=== PATIENT | female | born 1985 | race Caucasian/White ===

== ENCOUNTER 2017-02-04 09:55 | Emergency (ER) | payer BC ==
[~2017-02-04] VITALS: Ht 172.7 cm; Wt 74.9 kg
[~2017-02-04 09:55] MED LIST: AZIT250T PO; BENZ-13 PO; HYDR-2997 PO; IBP800T; LISD40CA3; NORG1TAB80; OXYC-272
--- OUTSIDE RECORDS SUMMARY | 2017-02-04 09:59 | XMS REPORT ---
Author Author BRIANNA HENDRICKS [facility] eClinicalWorks Address Unknown Phone Unavailable Care Team Providers Care Neurology Director Name Role Phone BRIANNA HENDRICKS CP Unavailable Allergies, Adverse Reactions, Alerts Substance Reaction Event Type N.K.D.A. Info Not Available Non Drug Allergy Problems Problem Type Condition ICD-9 Code Onset Dates Condition Status Problem Unspecified disorder of menstruation and other abnormal bleeding from female genital tract 626.9 Active Problem Papanicolaou smear of cervix with low grade squamous intraepithelial lesion (LGSIL) 795.03 Active Problem Generalized anxiety disorder 300.02 Active Problem Moderate dysplasia of cervix 622.12 Active Assessment Depression with anxiety 300.4 Active Medications Medication Code System Code Instructions Start Date End Date Status Dosage HydrOXYzine HCl [facility] [address]-61 50 MG Orally 2 times a day prn anxiety sleep Dec 08, 2014 1 tablet as needed Fluoxetine HCl [facility] [address]-12 20 MG Orally Once a day Dec 08, 2014 1 capsule in the morning Ortho Tri-Cyclen Lo [facility] [address]-62 0.18/0.215/0.25 MG-25 MCG Orally Once a day October 15, 2014 1 tablet Procedures Procedure Coding System Code Date Office Visit, Est Pt., Level 4 CPT-4 76787 Dec 08, 2014 Vital Signs Date/Time: Dec 08, 2014 Temperature 98.5 F Weight 172.5 lbs Height 69 in BMI 25.47 Index Blood Pressure Diastolic 70 mmHg Blood Pressure Systolic 118 mmHg Cardiac Monitoring Heart Rate 88 bpm Results No Known Results Summary Purpose eClinicalWorks Submission
--- OUTSIDE RECORDS SUMMARY | 2017-02-04 09:59 | XMS REPORT ---
Author Author BRIANNA HENDRICKS [facility] eClinicalWorks Address Unknown Phone Unavailable Care Team Providers Care Control Supervisor Name Role Phone BRIANNA HENDRICKS CP Unavailable Allergies, Adverse Reactions, Alerts Substance Reaction Event Type N.K.D.A. Info Not Available Non Drug Allergy Problems Problem Type Condition Code Onset Dates Condition Status Problem Unspecified disorder of menstruation and other abnormal bleeding from female genital tract 626.9 Active Problem Papanicolaou smear of cervix with low grade squamous intraepithelial lesion (LGSIL) 795.03 Active Problem Generalized anxiety disorder F41.1 Active Problem Moderate dysplasia of cervix 622.12 Active Assessment Depression with anxiety 300.4 Active Medications Medication Code System Code Instructions Start Date End Date Status Dosage HydrOXYzine HCl [facility] [address]-73 50 MG Orally Once a day at hs prn 1 tablet as needed Ortho Tri-Cyclen Lo [facility] [address]-73 0.18/0.215/0.25 MG-25 MCG Orally Once a day October 15, 2014 1 tablet Fluoxetine HCl [facility] [address]-49 20 MG Orally Once a day 1 capsule in the morning BusPIRone HCl [facility] [address]-80 7.5 MG Orally Once a day prn Dec 29, 2014 1 tablet Procedures Procedure Coding System Code Date Office Visit, Est Pt., Level 3 CPT-4 26413 Dec 29, 2014 Vital Signs Date/Time: Dec 29, 2014 Cardiac Monitoring Heart Rate 78 bpm Temperature 98.3 F Height 69 in Head Circumference 104/70 cm Results No Known Results Summary Purpose eClinicalWorks Submission
--- OUTSIDE RECORDS SUMMARY | 2017-02-04 09:59 | XMS REPORT ---
Author NIVIA Perry Organization eClinicalWorks Address Unknown Phone Unavailable Care Team Providers Care Client Service Professional Name Role Phone NIVIA BUENO CP Unavailable Allergies No Known Allergies Problems Problem Type Condition Code Onset Dates Condition Status Problem Unspecified disorder of menstruation and other abnormal bleeding from female genital tract 626.9 Active Problem Papanicolaou smear of cervix with low grade squamous intraepithelial lesion (LGSIL) 795.03 Active Problem Generalized anxiety disorder F41.1 Active Problem Moderate dysplasia of cervix 622.12 Active Assessment Generalized anxiety disorder F41.1 Active Medications No Known Medications Procedures Procedure Coding System Code Date Psychotherapy, patient &/family, 30 minutes, established patient CPT-4 13709 Dec 29, 2014 Results No Known Results Summary Purpose [employer] Submission
--- OUTSIDE RECORDS SUMMARY | 2017-02-04 09:59 | XMS REPORT ---
Author Author IRENE HDZ [facility] Address [address] [place] [address] Care Team Providers Care Inside Channel Account Manager Name Role Phone IRENE HDZ Unavailable PROBLEMS Type Condition ICD9-CM Code [id number] Code Onset Dates Condition Status SNOMED Code Problem Unspecified disorder of menstruation and other abnormal bleeding from female genital tract 626.9 Active 707188532 Problem Papanicolaou smear of cervix with low grade squamous intraepithelial lesion (LGSIL) 795.03 Active 397284614 Problem ADHD (attention deficit hyperactivity disorder), inattentive type F90.0 Active 04210919 Problem Anxiety F41.9 Active 84421800 Problem Generalized anxiety disorder F41.1 Active 91133636 Problem Moderate dysplasia of cervix 622.12 Active 493615773 Problem Depression F32.9 Active 74372704 Problem Insomnia G47.00 Active 089390026 ALLERGIES No Known Allergies SOCIAL HISTORY No smoking Hx information available PLAN OF CARE VITAL SIGNS MEDICATIONS No Known Medications RESULTS No Results PROCEDURES No Known procedures IMMUNIZATIONS No Known Immunizations
--- OUTSIDE RECORDS SUMMARY | 2017-02-04 09:59 | XMS REPORT ---
Author Author EMERSON BUENO Organization eClinicalWorks Address Unknown Phone Unavailable Care Team Providers Care Supervisor Grinding Name Role Phone EMERSON BUENO CP Unavailable Allergies No Known Allergies Problems Problem Type Condition Code Onset Dates Condition Status Problem Moderate dysplasia of cervix 622.12 Active Problem Anxiety F41.9 Active Problem Depression F32.9 Active Problem Attention-deficit hyperactivity disorder, predominantly inattentive type F90.0 Active Problem Unspecified disorder of menstruation and other abnormal bleeding from female genital tract 626.9 Active Problem Papanicolaou smear of cervix with low grade squamous intraepithelial lesion (LGSIL) 795.03 Active Problem Insomnia G47.00 Active Problem Generalized anxiety disorder F41.1 Active Medications Medication Code System Code Instructions Start Date End Date Status Dosage Vyvanse [facility] [address]-34 50 MG Orally Once a day Apr 06, 2015 1 capsule in the morning Results No Known Results Summary Purpose eClinicalWorks Submission
--- OUTSIDE RECORDS SUMMARY | 2017-02-04 10:02 | XMS REPORT ---
Demographics Address [address] [place] [address] Preferred Language Unknown Marital Status Unknown Restorationism Affiliation Unknown Race White Ethnic Group Not or Author Author ERIC MONTELONGO [facility] eClinicalWorks Address Unknown Phone Unavailable Care Team Providers Care Logistics Associate Name Role Phone ERIC MONTELONGO CP Unavailable Allergies No Known Allergies Problems Problem Type Condition Code Onset Dates Condition Status Problem Depression F32.9 Active Problem Insomnia G47.00 Active Problem Anxiety F41.9 Active Problem Papanicolaou smear of cervix with low grade squamous intraepithelial lesion (LGSIL) 795.03 Active Problem Moderate dysplasia of cervix 622.12 Active Problem Generalized anxiety disorder F41.1 Active Problem Unspecified disorder of menstruation and other abnormal bleeding from female genital tract 626.9 Active Medications No Known Medications Results No Known Results Summary Purpose eClinicalWorks Submission
--- OUTSIDE RECORDS SUMMARY | 2017-02-04 10:02 | XMS REPORT ---
Author Author ERIC MONTELONGO [facility] eClinicalWorks Address Unknown Phone Unavailable Care Team Providers Care Splicer Machine Operator Name Role Phone ERIC MONTELONGO CP Unavailable [...]
--- OUTSIDE RECORDS SUMMARY | 2017-02-04 10:04 | XMS REPORT ---
Demographics Address [address] [place] [address] Preferred Language Unknown Marital Status Unknown Synagogue Affiliation Unknown Race White Ethnic Group Not or Author PARIS Barroso [facility] eClinicalWorks Address Unknown Phone Unavailable Care Team Providers Care Senior Site Manager Name Role Phone PARIS VILLANUEVA CP Unavailable Allergies No Known Allergies Problems [...] Start Date End Date Status Dosage Vyvanse [facility] [address]-79 40 mg Orally Once a day Apr 06, 2015 1 capsule in the morning Results No Known Results Summary Purpose eClinicalWorks Submission
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
--- OUTSIDE RECORDS SUMMARY | 2017-02-04 10:07 | XMS REPORT ---
Demographics Address [address] [place] [address] Preferred Language Unknown Marital Status Unknown Hinduism Affiliation Unknown Race White Ethnic Group Not or Author IRENE Cueva [facility] eClinicalWorks Address Unknown Phone Unavailable Care Team Providers Care Newspaper Delivery Driver Name Role Phone IRENE HDZ CP Unavailable Allergies No Known Allergies Problems [...] Start Date End Date Status Dosage Vyvanse [facility] [address]-97 40 mg Orally Once a day Apr 06, 2015 1 capsule in the morning Results No Known Results Summary Purpose eClinicalWorks Submission
--- OUTSIDE RECORDS SUMMARY | 2017-02-04 10:07 | XMS REPORT ---
Author Author IRENE HDZ [facility] Address [address] [place] [address] Care Team Providers Care Research Recruiter Name Role Phone IRENE HDZ Unavailable PROBLEMS Type Condition ICD9-CM Code [id number] Code Onset Dates Condition Status SNOMED Code Problem Unspecified disorder of menstruation and other abnormal bleeding from female genital tract 626.9 Active 957698426 Problem Papanicolaou smear of cervix with low grade squamous intraepithelial lesion (LGSIL) 795.03 Active 913401246 Problem ADHD (attention deficit hyperactivity disorder), inattentive type F90.0 Active 06025741 Problem Anxiety F41.9 Active 93732243 Problem Generalized anxiety disorder F41.1 Active 05196176 Problem Moderate dysplasia of cervix 622.12 Active 328112033 Problem Depression F32.9 Active 85739849 Problem Insomnia G47.00 Active 331711360 ALLERGIES No Known Allergies SOCIAL HISTORY No smoking Hx information available PLAN OF CARE VITAL SIGNS MEDICATIONS No Known Medications RESULTS No Results PROCEDURES No Known procedures IMMUNIZATIONS No Known Immunizations
--- OUTSIDE RECORDS SUMMARY | 2017-02-04 10:07 | XMS REPORT ---
Author Author EMERSON BUENO [facility] Address [address] [place] [address] Care Team Providers Care Bat Boy/Girl Name Role Phone EMERSON BUENO Unavailable PROBLEMS Type Condition ICD9-CM Code [id number] Code Onset Dates Condition Status SNOMED Code Assessment Attention deficit disorder F90.0 Nov, Active 672664939 Problem Papanicolaou smear of cervix with low grade squamous intraepithelial lesion (LGSIL) 795.03 Active 705185584 Problem Moderate dysplasia of cervix 622.12 Active 504427870 Problem Attention-deficit hyperactivity disorder, predominantly inattentive type F90.0 Active 99253168 Problem Anxiety F41.9 Active 28526088 Problem Generalized anxiety disorder F41.1 Active 52516767 Problem Unspecified disorder of menstruation and other abnormal bleeding from female genital tract 626.9 Active 329823823 Problem Depression F32.9 Active 03086639 Problem Insomnia G47.00 Active 838790997 ALLERGIES Unknown Allergies SOCIAL HISTORY No smoking Hx information available PLAN OF CARE VITAL SIGNS Height 69 in 2015-12-07 Weight 164.4 lbs 2015-12-07 Heart Rate 72 bpm 2015-12-07 Respiratory Rate 20 2015-12-07 BMI 24.27 kg/m2 2015-12-07 Blood pressure systolic 128 mmHg 2015-12-07 Blood pressure diastolic 78 mmHg 2015-12-07 MEDICATIONS Medication Instructions Dosage Frequency Start Date End Date Duration Status Vyvanse 50 MG Orally Once a day 1 capsule in the morning 24h Mar, 28 days Active Ortho Tri-Cyclen Lo 0.18/0.215/0.25 MG-25 MCG Orally Once a day 1 tablet 24h Sep, 28 day(s) Active RESULTS No Results PROCEDURES Procedure Date Ordered Related Diagnosis Body Site MH Office Visit, Est Pt., Level 3 Dec 07, 2015 IMMUNIZATIONS No Known Immunizations
--- OUTSIDE RECORDS SUMMARY | 2017-02-04 10:07 | XMS REPORT ---
Demographics Address [address] [place] [address] Preferred Language Unknown Marital Status Unknown Adventist Affiliation Unknown Race White Ethnic Group Not or Author Author ERIC MONTELONGO Organization eClinicalWorks Address Unknown Phone Unavailable Care Team Providers Care Power Plant Superintendent Name Role Phone ERIC MONTELONGO CP Unavailable Allergies, Adverse Reactions, Alerts Substance Reaction Event Type N.K.D.A. Info Not Available Non Drug Allergy Problems Problem Type Condition Code Onset Dates Condition Status Assessment Attention deficit disorder F90.0 Active Problem Depression F32.9 Active Problem Insomnia G47.00 Active Problem Anxiety F41.9 Active Problem Papanicolaou smear of cervix with low grade squamous intraepithelial lesion (LGSIL) 795.03 Active Problem Moderate dysplasia of cervix 622.12 Active Problem Generalized anxiety disorder F41.1 Active Problem Unspecified disorder of menstruation and other abnormal bleeding from female genital tract 626.9 Active Medications Medication Code System Code Instructions Start Date End Date Status Dosage Ortho Tri-Cyclen Lo [facility] [address]-21 0.18/0.215/0.25 MG-25 MCG Orally Once a day October 15, 2014 1 tablet Vyvanse [facility] [address]-05 20 MG Orally Once a day Apr 06, 2015 1 capsule in the morning Procedures Procedure Coding System Code Date Psych diagnostic evaluation w/medical services, established patient CPT-4 36206 Apr 06, 2015 Vital Signs Date/Time: Apr 06, 2015 Cardiac Monitoring Heart Rate 76 bpm Weight 166.0 lbs Height 69 in BMI 24.51 Index Blood Pressure Diastolic 80 mmHg Blood Pressure Systolic 100 mmHg Results No Known Results Summary Purpose eClinicalWorks Submission
--- OUTSIDE RECORDS SUMMARY | 2017-02-04 10:07 | XMS REPORT ---
Demographics Address [address] [place] [address] Preferred Language Unknown Marital Status Unknown Alevism Affiliation Unknown Race White Ethnic Group Not or Author Author BRIANNA HENDRICKS [facility] eClinicalWorks Address Unknown Phone Unavailable Care Team Providers Care Cctv Technician Name Role Phone BRIANNA HENDRICKS CP Unavailable Allergies, Adverse Reactions, Alerts Substance Reaction Event Type N.K.D.A. Info Not Available Non Drug Allergy Problems Problem Type Condition Code Onset Dates Condition Status Assessment Anxiety F41.9 Active Assessment Insomnia G47.00 Active Problem Depression F32.9 Active Problem Insomnia [...] Instructions Start Date End Date Status Dosage BusPIRone HCl [facility] [address]-12 7.5 MG Orally Once a day prn Dec 29, 2014 1 tablet Ortho Tri-Cyclen Lo [facility] [address]-52 0.18/0.215/0.25 MG-25 MCG Orally Once a day October 15, 2014 1 tablet HydrOXYzine HCl [facility] [address]-00 50 MG Orally Once a day at hs prn 1 tablet as needed Procedures Procedure Coding System Code Date Office Visit, Est Pt., Level 3 CPT-4 55942 Mar 02, 2015 Vital Signs Date/Time: Mar 02, 2015 Temperature 97.5 F Weight 164 lbs Height 69 in BMI 24.22 Index Blood Pressure Diastolic 70 mmHg Blood Pressure Systolic 110 mmHg Cardiac Monitoring Heart Rate 68 bpm Results No Known Results Summary Purpose eClinicalWorks Submission
--- OUTSIDE RECORDS SUMMARY | 2017-02-04 10:08 | XMS REPORT ---
Author Author EMERSON Rothman [facility] Address [address] [place] [address] Care Team Providers Care Mud Cleaner Operator Name Role Phone EMERSON Rothman Unavailable PROBLEMS Type Condition ICD9-CM Code QPH78-FF Code Onset Dates Condition Status SNOMED Code Problem Papanicolaou smear of cervix with low grade squamous intraepithelial lesion (LGSIL) 795.03 Active 122828601 Problem Moderate dysplasia of cervix 622.12 Active 852815172 Problem ADHD (attention deficit hyperactivity disorder), inattentive type F90.0 Active 69716545 Problem Anxiety F41.9 Active 97683050 Problem Generalized anxiety disorder F41.1 Active 69128804 Problem Unspecified disorder of menstruation and other abnormal bleeding from female genital tract 626.9 Active 564000131 Problem Depression F32.9 Active 04291389 Problem Insomnia G47.00 Active 855945173 ALLERGIES No Known Allergies SOCIAL HISTORY No smoking Hx information available PLAN OF CARE VITAL SIGNS MEDICATIONS Medication Instructions Dosage Frequency Start Date End Date Duration Status Vyvanse 50 MG Orally Once a day 1 capsule in the morning 24h Mar, 28 days Active RESULTS No Results PROCEDURES No Known procedures IMMUNIZATIONS No Known Immunizations
--- OUTSIDE RECORDS SUMMARY | 2017-02-04 10:08 | XMS REPORT ---
Demographics Address [address] [place] [address] Preferred Language Unknown Marital Status Unknown Caodaism Affiliation Unknown Race White Ethnic Group Not or Author Author EMERSON BUENO Organization eClinicalWorks Address Unknown Phone Unavailable Care Team Providers Care Cut Off Saw Operator Metal Name Role Phone EMERSON BUENO CP Unavailable [...] Start Date End Date Status Dosage Vyvanse [facility] [address]-54 40 mg Orally Once a day Apr 06, 2015 1 capsule in the morning Results No Known Results Summary Purpose eClinicalWorks Submission
--- OUTSIDE RECORDS SUMMARY | 2017-02-04 10:08 | XMS REPORT ---
Author Author EMERSON BUENO Organization eClinicalWorks Address Unknown Phone Unavailable Care Team Providers Care Freight Shipping Agent Name Role Phone EMERSON BUENO CP Unavailable [...] Start Date End Date Status Dosage Vyvanse [facility] [address]-26 50 MG Orally Once a day Apr 06, 2015 1 capsule in the morning Results No Known Results Summary Purpose eClinicalWorks Submission
--- OUTSIDE RECORDS SUMMARY | 2017-02-04 10:10 | XMS REPORT | Continuity of Care Document ---
Author Author [facility] Address Unknown Phone Unavailable Allergies Active Description Code Type Severity Reaction Onset Reported/Identified Relationship to Patient Clinical Status Yes No Known Drug Allergies [id number] Drug Allergy Mild N/A 09/18/2008 Medications Problems Date Dx Coded Attending Type Code Diagnosis Diagnosed By 10/09/2007 MIKA VELÁZQUEZ APRN A 884.0 WOUND OPEN UPPER LIMB [facility]PP[facility] WOUND OPEN UPPER LIMB 10/09/2007 IRENE HDZ DO 884.0 WOUND OPEN UPPER LIMB 10/09/2007 ELLE BENNETT APRN A 884.0 WOUND OPEN UPPER LIMB 10/09/2007 IRENE HDZ DO 884.0 WOUND OPEN UPPER LIMB 10/09/2007 ELLE BENNETT APRN A 884.0 WOUND OPEN UPPER LIMB 10/09/2007 STEVE PATEL MD 884.0 WOUND OPEN UPPER LIMB 10/09/2007 STEVE PATEL MD 884.0 WOUND OPEN UPPER LIMB 10/09/2007 ELLE BENNETT APRN A 884.0 WOUND OPEN UPPER LIMB 10/09/2007 BRIANNA HENDRICKS APRN 884.0 WOUND OPEN UPPER LIMB 10/15/2007 MIKA VELÁZQUEZ APRN A 882.0 OPEN WOUND OF HAND EXCEPT FINGERS ALONE WITHOUT COMPLICATION 10/15/2007 [facility] OPEN WOUND OF HAND EXCEPT FINGERS ALONE WITHOUT COMPLICATION 10/15/[facility] OPEN WOUND OF HAND EXCEPT FINGERS ALONE WITHOUT COMPLICATION 10/15/2007 IRENE HDZ DO 882.0 OPEN WOUND OF HAND EXCEPT FINGERS ALONE WITHOUT COMPLICATION 10/15/2007 ELLE BENNETT APRN A 882.0 OPEN WOUND OF HAND EXCEPT FINGERS ALONE WITHOUT COMPLICATION 10/15/2007 IRENE HDZ DO K 882.0 OPEN WOUND OF HAND EXCEPT FINGERS ALONE WITHOUT COMPLICATION 10/15/2007 ELLE BENNETT APRN A 882.0 OPEN WOUND OF HAND EXCEPT FINGERS ALONE WITHOUT COMPLICATION 10/15/2007 STEVE PATEL MD N 882.0 OPEN WOUND OF HAND EXCEPT FINGERS ALONE WITHOUT COMPLICATION 10/15/2007 STEVE PATEL MD 882.0 OPEN WOUND OF HAND EXCEPT FINGERS ALONE WITHOUT COMPLICATION 10/15/2007 ELLE BENNETT APRN A 882.0 OPEN WOUND OF HAND EXCEPT FINGERS ALONE WITHOUT COMPLICATION 10/15/2007 BRIANNA HENDRICKS APRN 882.0 OPEN WOUND OF HAND EXCEPT FINGERS ALONE WITHOUT COMPLICATION 11/21/2007 MIKA VELÁZQUEZ APRN A 381.81 EUSTACHIAN TUBE DYSFUNCTION 11/21/2007 [facility], NITIN [place] 381.81 EUSTACHIAN TUBE DYSFUNCTION 11/21/2007 [facility], NITIN [place] 381.81 EUSTACHIAN TUBE DYSFUNCTION 11/21/2007 IRENE HDZ DO K 381.81 EUSTACHIAN TUBE DYSFUNCTION 11/21/2007 ELLE BENNETT APRN A 381.81 EUSTACHIAN TUBE DYSFUNCTION 11/21/2007 IRENE HDZ DO K 381.81 EUSTACHIAN TUBE DYSFUNCTION 11/21/2007 ELLE BENNETT APRN A 381.81 EUSTACHIAN TUBE DYSFUNCTION 11/21/2007 STEVE PATEL MD 381.81 EUSTACHIAN TUBE DYSFUNCTION 11/21/2007 STEVE PATEL MD 381.81 EUSTACHIAN TUBE DYSFUNCTION 11/21/2007 ELLE BENNETT APRN A 381.81 EUSTACHIAN TUBE DYSFUNCTION 11/21/2007 BRIANNA HENDRICKS APRN 381.81 EUSTACHIAN TUBE DYSFUNCTION 04/02/2008 MIKA VELÁZQUEZ APRN 641.90 COMP. BLEED IN PREG. UNSP 04/02/2008 MIKA VELÁZQUEZ APRN V22.0 Supervision Of Normal First [facility]/02/[facility] COMP. BLEED IN PREG. UNSP 04/02/2008 [facility] V[facility].0 Supervision Of Normal First 04/02/2008 [facility], NITIN R 641.90 COMP. BLEED IN PREG. UNSP 04/02/2008 [facility], NITIN R V22.0 Supervision Of Normal First 04/02/2008 IRENE HDZ DO 641.90 COMP. BLEED IN PREG. UNSP 04/02/2008 IRENE HDZ DO V22.0 Supervision Of Normal First 04/02/2008 DANIEL BENNETT APRNIDI A 641.90 COMP. BLEED IN PREG. UNSP 04/02/2008 SABRINA RASMUSSEN ELLE A V22.0 Supervision Of Normal First 04/02/2008 IRENE HDZ DO K 641.90 COMP. BLEED IN PREG. UNSP 04/02/2008 IRENE HDZ DO V22.0 Supervision Of Normal First 04/02/2008 ELLE BENNETT APRN A 641.90 COMP. BLEED IN PREG. UNSP 04/02/2008 ELLE BENNETT APRN A V22.0 Supervision Of Normal First 04/02/2008 STEVE PATEL MD N 641.90 COMP. BLEED IN PREG. UNSP 04/02/2008 STEVE PATEL MD N V22.0 Supervision Of Normal First 04/02/2008 STEVE PATEL MD 641.90 COMP. BLEED IN PREG. UNSP 04/02/2008 STEVE PATEL MD N V22.0 Supervision Of Normal First 04/02/2008 ELLE BENNETT APRN A 641.90 COMP. BLEED IN PREG. UNSP 04/02/2008 ELLE BENNETT APRN A V22.0 Supervision Of Normal First 04/02/2008 BRIANNA HENDRICKS APRN 641.90 COMP. BLEED IN PREG. UNSP 04/02/2008 BRIANNA HENDRICKS APRN L V22.0 Supervision Of Normal First 04/22/2008 MIKA VELÁZQUEZ APRN V22.1 PC OTHER NORMAL 04/22/2008 [facility], NITIN R V22.1 PC OTHER NORMAL 04/22/2008 [facility], NITIN [place] V22.1 PC OTHER NORMAL 04/22/2008 HDZ DO, IRENE K V22.1 PC OTHER NORMAL 04/22/2008 SABRINA APRN, ELLE A V22.1 PC OTHER NORMAL 04/22/2008 IRENE HDZ DO K V22.1 PC OTHER NORMAL 04/22/2008 SABIRNA INDUSTRIAL MAINTENANCE MANAGER, ELLE A V22.1 PC OTHER NORMAL 04/22/2008 STEVE PATEL MD N V22.1 PC OTHER NORMAL 04/22/2008 STEVE PATEL MD V22.1 PC OTHER NORMAL 04/22/2008 SABRINA APRN, ELLE A V22.1 PC OTHER NORMAL 04/22/2008 BRIANNA HENDRICKS APRN L V22.1 PC OTHER NORMAL 07/09/2008 VISHNU VELÁZQUEZ APRNYL A 461.9 SINUSITIS ACUTE 07/09/2008 [facility], NITIN R 461.9 SINUSITIS ACUTE 07/09/2008 [facility], NIITN R 461.9 SINUSITIS ACUTE 07/09/2008 IRENE HDZ DO K 461.9 SINUSITIS ACUTE 07/09/2008 SABRINACHANTALE RASMUSSEN, ELLE A 461.9 SINUSITIS ACUTE 07/09/2008 IRENE HDZ DO K 461.9 SINUSITIS ACUTE 07/09/2008 SABRINA APRN, ELLE A 461.9 SINUSITIS ACUTE 07/09/2008 STEVE PATEL MD N 461.9 SINUSITIS ACUTE 07/09/2008 STEVE PATEL MD 461.9 SINUSITIS ACUTE 07/09/2008 SABRINA RASMUSSEN ELLE A 461.9 SINUSITIS ACUTE 07/09/2008 BRIANNA HENDRICKS APRN L 461.9 SINUSITIS ACUTE 11/12/2008 MIKA VELÁZQUEZ APRN A V24.2 visit for: exam 11/12/2008 MIKA VELÁZQUEZ APRN A V25.41 visit for: contraceptive surveillance pill 11/12/2008 [facility] visit for: exam 11/12/[facility] V[facility] visit for: contraceptive surveillance pill 11/12/2008 [facility] V24.2 visit for: exam 11/12/2008 [facility], NITIN R V25.41 visit for: contraceptive surveillance pill 11/12/2008 HDZ DO, IRENE K V24.2 visit for: exam 11/12/2008 HDZ DO, IRENE K V25.41 visit for: contraceptive surveillance pill 11/12/2008 SABRINA INDUSTRIAL MAINTENANCE MANAGER, ELLE A V24.2 visit for: exam 11/12/2008 SABRINA INDUSTRIAL MAINTENANCE MANAGER, ELLE A V25.41 visit for: contraceptive surveillance pill 11/12/2008 HDZ DO, IRENE K V24.2 visit for: exam 11/12/2008 HDZ DO, IRENE K V25.41 visit for: contraceptive surveillance pill 11/12/2008 SABRINA INDUSTRIAL MAINTENANCE MANAGER, ELLE A V24.2 visit for: exam 11/12/2008 SABRINA INDUSTRIAL MAINTENANCE MANAGER, ELLE A V25.41 visit for: contraceptive surveillance pill 11/12/2008 STEVE PATEL MD N V24.2 visit for: exam 11/12/2008 STEVE PATEL MD N V25.41 visit for: contraceptive surveillance pill 11/12/2008 STEVE PATEL MD N V24.2 visit for: exam 11/12/2008 STEVE PATEL MD N V25.41 visit for: contraceptive surveillance pill 11/12/2008 SABRINA INDUSTRIAL MAINTENANCE MANAGER, ELLE A V24.2 visit for: exam 11/12/2008 SABRINA INDUSTRIAL MAINTENANCE MANAGER, ELLE A V25.41 visit for: contraceptive surveillance pill 11/12/2008 MADL INDUSTRIAL MAINTENANCE MANAGER, BRIANNA L V24.2 visit for: exam 11/12/2008 MADL INDUSTRIAL MAINTENANCE MANAGER, BRIANNA L V25.41 visit for: contraceptive surveillance pill 12/23/2008 VISHNU VELÁZQUEZ APRNYL A 079.4 HUMAN PAPILLOMAVIRUS IN CONDITIONS CLASSIFIED ELSEWHERE AND OF UNSPECIFIED SITE 12/23/2008 MELANIA RASMUSSEN MIKA A 795.01 ASCUS PAP 12/23/2008 MYLES LSCSNITIN R 079.4 HUMAN PAPILLOMAVIRUS IN CONDITIONS CLASSIFIED ELSEWHERE AND OF UNSPECIFIED SITE 12/23/2008 [facility], NITIN R 795.01 ASCUS PAP 12/23/2008 MYLES LSCS, NITIN R 079.4 HUMAN PAPILLOMAVIRUS IN CONDITIONS CLASSIFIED ELSEWHERE AND OF UNSPECIFIED SITE 12/23/2008 MYLES LSCS, NITIN R 795.01 ASCUS PAP 12/23/2008 HDZ IRENE BARBER K 079.4 HUMAN PAPILLOMAVIRUS IN CONDITIONS CLASSIFIED ELSEWHERE AND OF UNSPECIFIED SITE 12/23/2008 HDZ DOXANDERA K 795.01 ASCUS PAP 12/23/2008 DANIEL BENNETT APRNIDI A 079.4 HUMAN PAPILLOMAVIRUS IN CONDITIONS CLASSIFIED ELSEWHERE AND OF UNSPECIFIED SITE 12/23/2008 DANIEL BENNETT APRNIDI A 795.01 ASCUS PAP 12/23/2008 HDZ IRENE BARBER K 079.4 HUMAN PAPILLOMAVIRUS IN CONDITIONS CLASSIFIED ELSEWHERE AND OF UNSPECIFIED SITE 12/23/2008 HDZ DOXANDERA K 795.01 ASCUS PAP 12/23/2008 DANIEL BENNETT APRNIDI A 079.4 HUMAN PAPILLOMAVIRUS IN CONDITIONS CLASSIFIED ELSEWHERE AND OF UNSPECIFIED SITE 12/23/2008 ELLE BENNETT APRN A 795.01 ASCUS PAP 12/23/2008 STEVE PATEL MD 079.4 HUMAN PAPILLOMAVIRUS IN CONDITIONS CLASSIFIED ELSEWHERE AND OF UNSPECIFIED SITE 12/23/2008 STEVE PATEL MD N 795.01 ASCUS PAP 12/23/2008 STEVE PATEL MD N 079.4 HUMAN PAPILLOMAVIRUS IN CONDITIONS CLASSIFIED ELSEWHERE AND OF UNSPECIFIED SITE 12/23/2008 STEVE PATEL MD N 795.01 ASCUS PAP 12/23/2008 ELLE BENNETT APRN A 079.4 HUMAN PAPILLOMAVIRUS IN CONDITIONS CLASSIFIED ELSEWHERE AND OF UNSPECIFIED SITE 12/23/2008 DANIEL BENNETT APRNIDI A 795.01 ASCUS PAP 12/23/2008 BRIANNA HENDRICKS APRN L 079.4 HUMAN PAPILLOMAVIRUS IN CONDITIONS CLASSIFIED ELSEWHERE AND OF UNSPECIFIED SITE 12/23/2008 IDALMISL GRADY BRIANNA L 795.01 ASCUS PAP 04/06/2009 MIKA VELÁZQUEZ APRN A 300.00 ANXIETY STATE, UNSPECIFIED 04/06/2009 [facility], NITIN R 300.00 ANXIETY STATE, UNSPECIFIED 04/06/2009 [facility], NITIN R 300.00 ANXIETY STATE, UNSPECIFIED 04/06/2009 HDZ DOXANDREA K 300.00 ANXIETY STATE, UNSPECIFIED 04/06/2009 SABRINA RASMUSSEN ELLE A 300.00 ANXIETY STATE, UNSPECIFIED 04/06/2009 IRENE HDZ DO K 300.00 ANXIETY STATE, UNSPECIFIED 04/06/2009 SABRINA RASMUSSEN ELLE A 300.00 ANXIETY STATE, UNSPECIFIED 04/06/2009 STEVE PATEL MD 300.00 ANXIETY STATE, UNSPECIFIED 04/06/2009 STEVE PATEL MD 300.00 ANXIETY STATE, UNSPECIFIED 04/06/2009 DANIEL BENNETT APRNIDI A 300.00 ANXIETY STATE, UNSPECIFIED 04/06/2009 BRIANNA HENDRICKS APRN 300.00 ANXIETY STATE, UNSPECIFIED 04/28/2010 MELANIA RASMUSSEN MIKA A 461.9 ACUTE SINUSITIS UNSPECIFIED 04/28/2010 [facility], NITIN R 461.9 ACUTE SINUSITIS UNSPECIFIED 04/28/2010 [facility], NITIN R 461.9 ACUTE SINUSITIS UNSPECIFIED 04/28/2010 XANDER HDZ DOA K 461.9 ACUTE SINUSITIS UNSPECIFIED 04/28/2010 DANIEL BENNETT APRNIDI A 461.9 ACUTE SINUSITIS UNSPECIFIED 04/28/2010 IRENE HDZ DO K 461.9 ACUTE SINUSITIS UNSPECIFIED 04/28/2010 DANIEL BENNETT APRNIDI A 461.9 ACUTE SINUSITIS UNSPECIFIED 04/28/2010 STEVE PATEL MD 461.9 ACUTE SINUSITIS UNSPECIFIED 04/28/2010 STEVE PATEL MD 461.9 ACUTE SINUSITIS UNSPECIFIED 04/28/2010 DANIEL BENNETT APRNIDI A 461.9 ACUTE SINUSITIS UNSPECIFIED 04/28/2010 BRIANNA HENDRICKS APRN 461.9 ACUTE SINUSITIS UNSPECIFIED 02/14/2011 MELANIA RASMUSSEN MIKA A 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 02/14/2011 [facility], NITIN R 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 02/14/2011 [facility], NITIN R 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 02/14/2011 XANDER HDZ DOA K 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 02/14/2011 SABRINA RASMUSSEN ELLE A 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 02/14/2011 IRENE HDZ DO 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 02/14/2011 ELLE BENNETT APRN A 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 02/14/2011 STEVE PATEL MD 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 02/14/2011 STEVE PATEL MD 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 02/14/2011 ELLE BENNETT APRN A 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 02/14/2011 BRIANNA HENDRICKS APRN 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 03/21/2013 [facility], NITIN R 300.02 AN GEN ANXIETY 03/21/2013 [facility], NITIN R 300.02 AN GEN ANXIETY 03/21/2013 IRENE HDZ DO K 300.02 AN GEN ANXIETY 03/21/2013 ELLE BENNETT APRN A 300.02 AN GEN ANXIETY 03/21/2013 IRENE HDZ DO 300.02 AN GEN ANXIETY 03/21/2013 ELLE BENNETT APRN A 300.02 AN GEN ANXIETY 03/21/2013 STEVE PATEL MD 300.02 AN GEN ANXIETY 03/21/2013 STEVE PATEL MD 300.02 AN GEN ANXIETY 03/21/2013 ELLE BENNETT APRN A 300.02 AN GEN ANXIETY 03/21/2013 BRIANNA HENDRICKS APRN 300.02 AN GEN ANXIETY 05/14/2013 IRENE HDZ DO V74.5 STD SCREEN 05/14/2013 ELLE BENNETT APRN A V74.5 STD SCREEN 05/14/2013 IRENE HDZ DO K V74.5 STD SCREEN 05/14/2013 ELLE BENNETT APRN A V74.5 STD SCREEN 05/14/2013 STEVE PATEL MD V74.5 STD SCREEN 05/14/2013 STEVE PATEL MD V74.5 STD SCREEN 05/14/2013 ELLE BENNETT APRN A V74.5 STD SCREEN 05/14/2013 BRIANNA HENDRICKS APRN V74.5 STD SCREEN 06/25/2013 ELLE BENNETT APRN 616.10 VAGINITIS AND VULVOVAGINITIS UNSPECIFIED 06/25/2013 IRENE HDZ DO 616.10 VAGINITIS AND VULVOVAGINITIS UNSPECIFIED 06/25/2013 ELLE BENNETT APRN 616.10 VAGINITIS AND VULVOVAGINITIS UNSPECIFIED 06/25/2013 STEVE PATEL MD 616.10 VAGINITIS AND VULVOVAGINITIS UNSPECIFIED 06/25/2013 STEVE PATEL MD 616.10 VAGINITIS AND VULVOVAGINITIS UNSPECIFIED 06/25/2013 ELLE BENNETT APRN 616.10 VAGINITIS AND VULVOVAGINITIS UNSPECIFIED 06/25/2013 BRIANNA HENDRICKS APRN 616.10 VAGINITIS AND VULVOVAGINITIS UNSPECIFIED 10/08/2013 IRENE HDZ DO V70.5 HEALTH EXAMINATION OF DEFINED SUBPOPULATIONS 10/08/2013 IRENE HDZ DO V74.1 TB SCREENING 10/08/2013 ELLE BENNETT APRN V70.5 HEALTH EXAMINATION OF DEFINED SUBPOPULATIONS 10/08/2013 ELLE BENNETT APRN V74.1 TB SCREENING 10/08/2013 STEVE PATEL MD V70.5 HEALTH EXAMINATION OF DEFINED SUBPOPULATIONS 10/08/2013 STEVE PATEL MD V74.1 TB SCREENING 10/08/2013 STEVE PATEL MD V70.5 HEALTH EXAMINATION OF DEFINED SUBPOPULATIONS 10/08/2013 STEVE PATEL MD V74.1 TB SCREENING 10/08/2013 ELLE BNENETT APRN V70.5 HEALTH EXAMINATION OF DEFINED SUBPOPULATIONS 10/08/2013 ELLE BENNETT APRN V74.1 TB SCREENING 10/08/2013 BRIANNA HENDRICKS APRN V70.5 HEALTH EXAMINATION OF DEFINED SUBPOPULATIONS 10/08/2013 BRIANNA HENDRICKS APRN V74.1 TB SCREENING 11/10/2013 ELLE BENNETT APRN 131.01 TRICHOMONAL VULVOVAGINITIS 11/10/2013 ELLE BENNETT APRN V25.01 CONTRACEPTION - ORAL CONTRACEPTION 11/10/2013 ELLE BENNETT APRN A V72.31 ROLL CUTTER EXAM, ROUTINE 11/10/2013 ELLE BENNETT APRN A V76.10 BREAST CANCER SCREENING 11/10/2013 ELLE BENNETT APRN A V76.2 CERVICAL CANCER SCREENING (PAP SMEAR) 11/10/2013 STEVE PATEL MD 131.01 TRICHOMONAL VULVOVAGINITIS 11/10/2013 STEVE PATEL MD V25.01 CONTRACEPTION - ORAL CONTRACEPTION 11/10/2013 STEVE PATEL MD V72.31 ROLL CUTTER EXAM, ROUTINE 11/10/2013 STEVE PATEL MD V76.10 BREAST CANCER SCREENING 11/10/2013 STEVE PATEL MD V76.2 CERVICAL CANCER SCREENING (PAP SMEAR) 11/10/2013 STEVE PATEL MD 131.01 TRICHOMONAL VULVOVAGINITIS 11/10/2013 STEVE PATEL MD V25.01 CONTRACEPTION - ORAL CONTRACEPTION 11/10/2013 STEVE PATEL MD V72.31 ROLL CUTTER EXAM, ROUTINE 11/10/2013 STEVE PATEL MD V76.10 BREAST CANCER SCREENING 11/10/2013 STEVE PATEL MD V76.2 CERVICAL CANCER SCREENING (PAP SMEAR) 11/10/2013 ELLE BENNETT APRN A 131.01 TRICHOMONAL VULVOVAGINITIS 11/10/2013 ELLE BENNETT APRN A V25.01 CONTRACEPTION - ORAL CONTRACEPTION 11/10/2013 ELLE BENNETT APRN A V72.31 ROLL CUTTER EXAM, ROUTINE 11/10/2013 ELLE BENNETT APRN A V76.10 BREAST CANCER SCREENING 11/10/2013 ELLE BENNETT APRN A V76.2 CERVICAL CANCER SCREENING (PAP SMEAR) 11/10/2013 BRIANNA HENDRICKS APRN L 131.01 TRICHOMONAL VULVOVAGINITIS 11/10/2013 BRIANNA HENDRICKS APRN L V25.01 CONTRACEPTION - ORAL CONTRACEPTION 11/10/2013 BRIANNA HENDRICKS APRN L V72.31 ROLL CUTTER EXAM, ROUTINE 11/10/2013 BRIANNA HENDRICKS APRN V76.10 BREAST CANCER SCREENING 11/10/2013 BRIANNA HENDRICKS APRN V76.2 CERVICAL CANCER SCREENING (PAP SMEAR) 12/02/2013 STEVE PATEL MD N 795.03 ABNORMAL PAP - LGSIL 12/02/2013 STEVE PATEL MD N 795.03 ABNORMAL PAP - LGSIL 12/02/2013 SABRINAELLE KENYON APRN A 795.03 ABNORMAL PAP - LGSIL 12/02/2013 BRIANNA HENDRICKS APRN 795.03 ABNORMAL PAP - LGSIL 01/08/2014 STEVE PATEL MD N 622.12 CERVICAL DYSPLASIA- MODERATE 01/08/2014 ELLE BENNETT APRN A 622.12 CERVICAL DYSPLASIA- MODERATE 01/08/2014 BRIANNA HENDRICKS APRN L 622.12 CERVICAL DYSPLASIA- MODERATE 01/21/2014 DANIEL BENNETT APRNIDI A 625.9 UNSPECIFIED SYMPTOM ASSOCIATED WITH FEMALE GENITAL ORGANS 01/21/2014 KERRY HENDRICKS APRNA L 625.9 UNSPECIFIED SYMPTOM ASSOCIATED WITH FEMALE GENITAL ORGANS 01/21/2014 DANIEL BENNETT APRNIDI A 626.9 MENSTRUATION AND OTHER ABNORMAL BLEEDING FROM FEMALE GENITAL TRACT 01/21/2014 DANIEL BENNETT APRNIDI A 626.9 MENSTRUATION AND OTHER ABNORMAL BLEEDING FROM FEMALE GENITAL TRACT 06/23/2014 BRIANNA HENDRICKS APRN L 599.0 URINARY TRACT INFECTION 06/23/2014 KERRY HENDRICKS APRNA L 626.9 MENSTRUATION AND OTHER ABNORMAL BLEEDING FROM FEMALE GENITAL TRACT 04/30/2015 MATT TROY APRN Ot 626.4 04/30/2015 MATT TROY INDUSTRIAL MAINTENANCE MANAGER Ot 780.60 04/30/2015 MATT TROY INDUSTRIAL MAINTENANCE MANAGER Ot 789.00 04/30/2015 TRISH MORAES Ot J06.9 ACUTE UPPER RESPIRATORY INFECTION, UNSPE 09/17/2015 YADY FIELDS DO Ot N93.8 OTHER SPECIFIED ABNORMAL UTERINE AND VAG 09/17/2015 YADY FIELDS DO Ot R10.2 PELVIC AND PERINEAL PAIN 09/17/2015 YADY FIELDS DO Ot N93.8 OTHER SPECIFIED ABNORMAL UTERINE AND VAG 09/17/2015 YADY FIELDS DO Ot R10.2 PELVIC AND PERINEAL PAIN 09/23/2015 YADY FIELDS DO Ot N93.8 OTHER SPECIFIED ABNORMAL UTERINE AND VAG 09/23/2015 FENECH DO, YADY Love Ot R10.2 PELVIC AND PERINEAL PAIN 10/28/2015 FENECH DO, YADY Love Ot N93.8 OTHER SPECIFIED ABNORMAL UTERINE AND VAG 10/28/2015 FENECH DO, YADY Love Ot R10.2 PELVIC AND PERINEAL PAIN 11/08/2015 FENECH DO, YADY Love Ot N93.8 OTHER SPECIFIED ABNORMAL UTERINE AND VAG 11/08/2015 FENECH DO, YADY Love Ot R10.2 PELVIC AND PERINEAL PAIN 12/18/2016 MATT TROY INDUSTRIAL MAINTENANCE MANAGER Ot 626.4 IRREGULAR MENSTRUATION 12/18/2016 MATT TROY INDUSTRIAL MAINTENANCE MANAGER Ot 780.60 FEVER, UNSPECIFIED 12/18/2016 MATT TROY INDUSTRIAL MAINTENANCE MANAGER Ot 789.00 ABDOMINAL PAIN, UNSPECIFIED SITE Procedures Code Description [place] [address] URINALYSIS, DIP STICK/OB 04/22/2008 91907 URINALYSIS, DIP SHORT OB 05/20/2008 29161 URINALYSIS, DIP STICK/OB 06/26/2008 17884 GLUCOSE NAVIN 1 HOUR 06/29/2008 68822 CBC 06/29/2008 80777 PSYCH DIAGNOSTIC EVALUATION 03/21/2013 09282 PSYTX PT&/FAMILY 45 MINUTES 04/24/2013 22340 ROUTINE VENIPUNCTURE 05/14/2013 87826 TRICHOMONAS (IN-HOUSE) 05/14/2013 59450 SYPHILLIS-[facility] 05/14/2013 18860 HIV ([facility]) 05/14/2013 54017 GC/CHLAM PROBE (STATE) 05/14/2013 43042 TEST, URINE (IN-HOUSE) 05/14/2013 00882 CULTURE UROGENITAL 05/15/2013 76798 TB TEST INTRADERMAL 10/08/2013 24494 ROUTINE VENIPUNCTURE 11/10/2013 11499 SYPHILLIS-[facility] 11/10/2013 74538 HIV ([facility]) 11/10/2013 19184 CULTURE UROGENITAL 11/10/2013 28188 GC/CHLAM PROBE (STATE) 11/10/2013 56197 PAP SMEAR 2013 Q0091 PAP SMEAR OBTAIN SMEAR 11/10/2013 55306 TEST, URINE (IN-HOUSE) 11/10/2013 42255 TRICHOMONAS (IN-HOUSE) 11/10/2013 18728 TEST, URINE (IN-HOUSE) 12/02/2013 98147 COLP W/ BX & ECC 12/02/2013 45756 COLP/LEEP 2013 36356 TEST, URINE (IN-HOUSE) 01/08/2014 92146 CULTURE URINE 09/2014 48789 UA W/ CULTURE IF INDICATED 06/23/2014 Results Encounters ACCT No. Visit Date/Time Discharge Status Pt. Type Provider Facility Loc./Unit Complaint [id number] 06/23/2014 15:55:00 06/23/2014 23: 59:59 CLS Outpatient BRIANNA HENDRICKS APRN [id number] 01/21/2014 09:57:00 01/21/2014 23: 59:59 CLS Outpatient ELLE BENNETT APRN [id number] 01/08/2014 13:35:00 01/08/2014 23: 59:59 CLS Outpatient STEVE PATEL MD [id number] 12/02/2013 13:23:00 12/02/2013 23: 59:59 CLS Outpatient STEVE PATEL MD [id number] 11/10/2013 10:52:00 11/10/2013 23: 59:59 CLS Outpatient ELLE BENNETT APRN [id number] 10/08/2013 09:40:00 10/08/2013 23: 59:59 CLS Outpatient IRENE HDZ DO [id number] 06/25/2013 11:00:00 06/25/2013 23: 59:59 CLS Outpatient ELLE BENNETT APRN [id number] 05/14/2013 09:13:00 05/14/2013 23: 59:59 CLS Outpatient IRENE HDZ DO [id number] 04/24/2013 13:56:00 04/24/2013 23: 59:59 CLS Outpatient NITIN DAWSON [id number] 03/21/2013 11:08:00 03/21/2013 23: 59:59 CLS Outpatient NITIN DAWSON [id number] 02/14/2011 16:31:00 02/14/2011 23: 59:59 CLS Outpatient MIKA VELÁZQUEZ APRN [id number] 09/01/2015 11:24:00 2015 23:59:59 CLS Outpatient YADY FIELDS DO [facility] RAD PELVIC PAIN,ABNORMAL UTERINE BLEEDING [id number] 04/30/2015 13:24:00 2015 15:02:00 DIS Emergency TRISH MORAES [facility] ER COUGH/FEVER BODYACHES [id number] 11/07/2012 14:01:00 2012 23:59:59 CLS Emergency [id number] 10/11/2012 11:30:00 2012 23:59:59 CLS Outpatient MATT TROY APRN [facility] RAD ABD PAIN,FEVER,IRREGULAR MENSES [id number] 10/10/2012 14:46:00 2012 23:59:59 CLS Outpatient [id number] 02/04/2017 09:56:00 ACT Emergency NICK BRAMBILA , LANA Sauceda [facility] ER SORE THROAT
[2017-02-04] MEDS ORDERED: ANTACID SUSP 30 ML UDC (MYLANTA) PO ONE (10:15)
[2017-02-04] MEDS ORDERED: LIDOCAINE 1% INJ 20 ML (XYLOCAINE) VIAL INJ ONE (10:15)
[2017-02-04] MEDS ORDERED: LIDOCAINE 2% VISCOUS 15 ML UDC PO ONE ×2 (10:15)
[2017-02-04] MEDS ORDERED: KETOROLAC 60 MG/2 ML VIAL IM ONE (10:15)
[2017-02-04] MEDS ORDERED: cefTRIAXone 1 GM (ROCEPHIN) VIAL IM ONE (10:15)
[2017-02-04] MEDS ORDERED: AMOX500C2 PO (11:18)
--- NOTE | 2017-02-04 11:18 | ED EENT ---
History of Present Illness General Chief Complaint: Oral/Throat Problems Stated Complaint: SORE THROAT Nursing Triage Note: PT C/O SORE THROAT AND FEVER SINCE YESTERDAY. Source: patient Exam Limitations: no limitations History of Present Illness Time seen by provider: 10:05 Initial Comments This 31-year-old young lady presents to the emergency room with intense pharyngitis. She is tearful because of the pain. It is difficult to swallow. Symptoms started yesterday and became very severe this morning. She has had chills without measured fever. She took Advil last night but has taken no medications this morning. Allergies and Home Medications Allergies Coded Allergies: No Known Drug Allergies (Unverified Allergy, Mild, 09/18/08) Home Medications Amoxicillin 500 Mg Capsule, 1,000 MG PO BID, #40 Prescribed by: LANA RIVAS on 02/04/17 1118 Azithromycin 250 Mg Tablet, 250 MG PO UD, #6 Ref 0 TAKE 2 TABLETS TODAY, THEN TAKE 1 TABLET DAILY FOR 4 MORE DAYS Prescribed by: TRISH FERMIN on 04/30/15 1459 Benzonatate 100 Mg Capsule, 100 MG PO Q8H PRN for COUGH, #14 Ref 1 Prescribed by: TRISH FERMIN on 04/30/15 1459 Lisdexamfetamine Dimesylate 40 Mg Capsule, #30 (Reported) Norgestimate-Ethinyl Estradiol 1 Each Tablet, #28 (Reported) Review of Systems Constitutional: no symptoms reported Eyes: No Symptoms Reported Ears: No Symptoms Reported Nose: no symptoms reported Mouth: no symptoms reported Throat: see HPI Respiratory: no symptoms reported Cardiovascular: no symptoms reported Gastrointestinal: nausea (mild) Musculoskeletal: no symptoms reported Skin: no symptoms reported Neurological: No Symptoms Reported Hematologic/Lymphatic: No Symptoms Reported Past Bvwyjod-Pscgkp-Nwpjqw Hx Patient Social History Alcohol Use: Occasionally Uses Recreational Drug Use: No Smoking Status: Current Everyday Smoker Type Used: Cigarettes 2nd Hand Smoke Exposure: Yes Recent Foreign Travel: No Contact w/Someone Who Travel: No Recent Infectious Disease Expo: No Recent Hopitalizations: No Physical Abuse: No Sexual Abuse: No Surgeries History of Surgeries: No Respiratory History of Respiratory Disorde: No Cardiovascular History of Cardiac Disorders: No Neurological History of Neurological Disord: No Reproductive System : No Hx Reproductive Disorders: No Genitourinary History of Genitourinary Disor: No Gastrointestinal History of Gastrointestinal Di: No Musculoskeletal History of Musculoskeletal Dis: No Endocrine History of Endocrine Disorders: No HEENT History of HEENT Disorders: No Cancer History of Cancer: No Psychosocial History of Psychiatric Problem: No Behavioral Health Disorders: ADD/ADHD Suicide Risk Score: 0 Blood Transfusions History of Blood Disorders: No Family Medical History Significant Family History: No Pertinent Family Hx Physical Exam Vital Signs Vital Sign - Last 12Hours 02/04/17 10:02 Temp 99.3 Pulse 95 Resp 18 B/P (MAP) 122/74 Pulse Ox 99 O2 Delivery Room Air General Appearance: mild distress Eyes: bilateral eye normal inspection, bilateral eye EOMI Ears: right ear other (cystic-looking white lesion on the floor of the right ear canal), left ear canal normal, bilateral ear auricle normal, bilateral ear TM normal Nose: normal inspection Mouth/Throat: pharynx swelling, tonsillar exudate, tonsillar swelling, other ( very raw appearing tonsils and pharynx with no asymmetry) Neck: supple, No lymphadenopathy (R), No lymphadenopathy (L), tender lateral Cardiovascular: regular rate, rhythm, no edema, no murmur Respiratory: lungs clear, normal breath sounds, no respiratory distress, no accessory muscle use 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, no motor/sensory deficits, alert, normal mood/affect, oriented x 3 Skin: normal color, warm/dry Progress/Results/Core Measures Results/Orders Lab Results Laboratory Tests Test 02/04/17 10:07 Range/Units Group A Streptococcus Screen POSITIVE H NEGATIVE My Orders Orders - LANA ROMERO MD Rapid Strep A Screen (02/04/17 10:04) Ceftriaxone Injection (Rocephin Injectio (02/04/17 10:15) Lidocaine 1% Injection (Xylocaine 1% Inj (02/04/17 10:15) Ketorolac Injection (Toradol Injection) (02/04/17 10:15) Lidocaine 2% Viscous 15 Ml (Xylocaine Vi (02/04/17 10:15) Antacid Suspension (Mylanta Suspension (02/04/17 10:15) Lidocaine 2% Viscous 15 Ml (Xylocaine Vi (02/04/17 10:15) Medications Given in ED Current Medications Medications Dose Ordered Sig/Ling Route Start Time Stop Time Status Last Admin Dose Admin Al Hydrox/Mg Hydrox/Simethicone 30 ml ONCE ONCE PO 02/04/17 10:15 02/04/17 10:16 DC 02/04/17 10:35 30 ML Ceftriaxone Sodium 1,000 mg ONCE ONCE IM 02/04/17 10:15 02/04/17 10:16 DC 02/04/17 10:30 1,000 MG Ketorolac Tromethamine 60 mg ONCE ONCE IM 02/04/17 10:15 02/04/17 10:16 DC 02/04/17 10:31 60 MG Lidocaine HCl 2.1 ml ONCE ONCE INJ 02/04/17 10:15 02/04/17 10:16 DC 02/04/17 10:30 2.1 ML Lidocaine HCl 15 ml ONCE ONCE PO 02/04/17 10:15 02/04/17 10:16 DC 02/04/17 10:35 15 ML Lidocaine HCl 15 ml ONCE ONCE PO 02/04/17 10:15 02/04/17 10:16 DC 02/04/17 10:35 15 ML Vital Signs/I&O Vital Sign - Last 12Hours 02/04/17 10:02 Temp 99.3 Pulse 95 Resp 18 B/P (MAP) 122/74 Pulse Ox 99 O2 Delivery Room Air Blood Pressure Mean: 90 Progress Note : Progress Note Patient was given a GI cocktail to gargle for relief of her pain. Rapid strep test was positive. She was given a Rocephin injection and a Toradol injection. She was advised to have her right ear canal reexamined to determine if the white spot is a cystic lesion or debris. Discharge instructions reviewed. Patient felt significantly improved at the time of dismissal. Departure Impression Impression: Primary Impression: Strep pharyngitis Disposition: 01 HOME, SELF-CARE Condition: Improved Departure-Patient Inst. Referrals: NO,LOCAL PHYSICIAN (PCP) Primary Care Physician YADY FIELDS DO (Family) Primary Care Physician Patient Instructions: Strep Throat (DC) Add. Discharge Instructions: You may take ibuprofen up to 600 mg every 6 hours as needed for pain. You may also take Tylenol (acetaminophen) up to 1000 mg every 6 hours as needed. Complete your antibiotics as prescribed. Dispose of her sanitize any oral instruments such as toothbrushes 5 days into your antibiotic treatment. Return to care if you're not improving as expected or if symptoms worsen. If you're not improving as expected, you may also consider getting tested for mononucleosis as strep and mono can sometimes occur together. You may gargle 5 mL of the lidocaine solution if necessary to help numb your throat. Do not return to work tomorrow if your symptoms are not improving or if you have fever. A work note has been provided. All discharge instructions reviewed with patient and/or family. Voiced understanding. Scripts Amoxicillin (Amoxicillin) 500 Mg Capsule 1000 MG PO BID, #40 CAP Prov: LANA ROMERO MD 02/04/17 Work/School Note: Work Release Form Date Seen in the Emergency Department: Feb 04, 2017 Return to Work: Feb 06, 2017 Restrictions: No Restrictions LANA ROMERO MD Feb 04, 2017 11:18
[2017-02-06 06:19] VITALS: BP 122/74
== END 2017-02-04 11:22 | disposition home or self-care (01) ==
LOC: EDUNIT# 09:55 → ER 09:56
DX: J02.0 Streptococcal pharyngitis (principal); F90.9 Attention-deficit hyperactivity disorder, unspecified type; F17.210 Nicotine dependence, cigarettes, uncomplicated
CPT/HCPCS: 87430; 99282; 99284

== ENCOUNTER → 2018-10-22 | Outpatient (CLI) | payer BC ==
[~2018-10-22] MED LIST changes: +AMOX500C2 PO; -BENZ-13 PO; +BENZ100C18 PO; +NORG1TAB3; -NORG1TAB80
--- NOTE | 2018-10-22 13:46 | Diagnostic Imaging Report ---
PROCEDURE: US Non-ob pelvis comp/trans. TECHNIQUE: Multiple realtime grayscale images were obtained of the pelvis in various projections endovaginally. Transabdominal imaging was also performed. INDICATION: Pelvic pain. FINDINGS: Uterus measures 8.6 x 6.5 x 4.5 cm. Endometrium is 7 mm in thickness. No myometrial mass is detected. Right ovary measures 2.8 x 1.8 x 1.8 cm and the left ovary measures 2.8 x 2.6 x 1.5 cm. Left ovary does contain a cyst measuring approximately 1.8 x 1.4 cm. There is blood flow to the ovaries. No free fluid is seen. IMPRESSION: Left ovarian cyst. The study is otherwise unremarkable. Dictated by: Dictated on workstation # [id number]
== END ==
LOC: RAD 11:03
PROVIDERS: ATTEND Obstetrics & Gynecology
DX: N83.202 Unspecified ovarian cyst, left side (principal); N94.5 Secondary dysmenorrhea
CPT/HCPCS: 76830; 76856

== ENCOUNTER → 2019-02-21 | Outpatient (CLI) | payer BC | END | disposition home or self-care (01) | LOC: OCC 08:24 | PROVIDERS: ATTEND Family Medicine ==

== ENCOUNTER → 2019-05-05 | Outpatient (CLI) | payer BC ==
--- NOTE | 2019-05-05 15:25 | Diagnostic Imaging Report ---
PROCEDURE: US Non-ob pelvis comp/trans. TECHNIQUE: Multiple real-time grayscale images were obtained of the pelvis in various projections endovaginally. Transabdominal imaging was also performed. INDICATION: Right lower quadrant abdominal pain. FINDINGS: Uterus measures 7.8 x 5 x 6.3 cm. Endometrial thickness is 9 mm. There are no myometrial or endometrial masses. There are some small nabothian cysts. Both ovaries are normal in size and morphology and demonstrate normal blood flow. There is a 2.7 cm left ovarian cyst. IMPRESSION: 2.7 cm left ovarian cyst, otherwise unremarkable pelvic ultrasound. Dictated by: Dictated on workstation # [id number]
== END ==
LOC: RAD 14:04
PROVIDERS: ATTEND Obstetrics & Gynecology
DX: N83.202 Unspecified ovarian cyst, left side (principal)
CPT/HCPCS: 76830; 76856

== ENCOUNTER → 2019-12-19 | Outpatient (CLI) | payer BC | LOC: LAB 14:55 | PROVIDERS: ATTEND Internal Medicine Endocrinology, Diabetes & Metabolism | DX: E03.9 Hypothyroidism, unspecified (principal) | CPT/HCPCS: 36415; 84443 ==

== ENCOUNTER → 2020-07-27 | Outpatient (CLI) | payer BC | LOC: LAB 08:02 | DX: E28.2 Polycystic ovarian syndrome (principal); N80.9 Endometriosis, unspecified; R73.03 Prediabetes; N94.3 Premenstrual tension syndrome | CPT/HCPCS: 36415; 82672; 82947; 83525; 84144; 84270; 84402 ==

== ENCOUNTER → 2021-04-08 | Outpatient (CLI) | payer BC ==
[2021-04-08 09:51] LABS: FREE T4 (FREE THYROXINE) 1.06 NG/DL (0.70-1.48)
== END ==
LOC: LAB 08:51
PROVIDERS: ATTEND Family Medicine
DX: E03.9 Hypothyroidism, unspecified (principal)
CPT/HCPCS: 36415; 84439; 84443

== ENCOUNTER 2022-03-09 15:48 | Emergency (ER) | payer BC ==
[~2022-03-09] VITALS: Ht 175.3 cm; Wt 61.2 kg
[2022-03-09 16:05] VITALS: BP 143/80
--- NOTE | 2022-03-09 16:11 | ED GU-Female ---
General Stated Complaint: UNABLE TO REMOVE TAMPON Source: patient Exam Limitations: no limitations History of Present Illness Date Seen by Provider: Mar 09, 2022 Time Seen by Provider: 16:04 Initial Comments 36-year-old female presents emergency department today for a vaginal foreign body. She states she fell asleep with a small vibrator. She cannot find it this morning. She fears it may still be in her vagina or it fell out and the dog ate it. She denies any discharge odor or bleeding. No abdominal pain. Allergies and Home Medications Allergies Coded Allergies: No Known Drug Allergies (Unverified Allergy, Mild, 09/18/08) Patient Home Medication List Home Medication List Reviewed: Yes Amoxicillin (Amoxicillin) 500 Mg Capsule, 1,000 MG PO BID Prescribed by: LANA RIVAS on 02/04/17 1118 Azithromycin (Zithromax) 250 Mg Tablet, 250 MG PO UD Prescribed by: TRISH FERMIN on 04/30/15 1459 Benzonatate (Tessalon Perles) 100 Mg Capsule, 100 MG PO Q8H PRN for COUGH Prescribed by: TRISH FERMIN on 04/30/15 1459 Lisdexamfetamine Dimesylate (Vyvanse) 40 Mg Capsule, (Reported) Entered as Reported by: NITIN FORREST on 04/30/15 1330 Norgestimate-Ethinyl Estradiol (Ortho Tri-Cyclen Lo Tablet) 1 Each Tablet, (Reported) Entered as Reported by: NITIN FORREST on 04/30/15 1341 Review of Systems Review of Systems Constitutional: no symptoms reported EENTM: no symptoms reported Respiratory: no symptoms reported Cardiovascular: no symptoms reported Gastrointestinal: no symptoms reported Genitourinary: other (Possible vaginal foreign body) Musculoskeletal: no symptoms reported Skin: no symptoms reported Psychiatric/Neurological: No Symptoms Reported Endocrine: No Symptoms Reported Hematologic/Lymphatic: No Symptoms Reported Past Wmoekul-Alhapl-Ahmcor Hx Patient Social History Tobacco Use?: No Use of E-Cig and/or Vaping dev: No Substance use?: No Alcohol Use?: No Past Medical History Surgeries: No Respiratory: No Cardiac: No Neurological: No Reproductive Disorders: No Genitourinary: No Gastrointestinal: No Musculoskeletal: No Endocrine: No HEENT: No Cancer: No Psychosocial: No ADD/ADHD Blood Disorders: No Family Medical History Reviewed Nursing Family Hx No Pertinent Family Hx Physical Exam Vital Signs Capillary Refill : Height, Weight, BMI Height: 5'8" Weight: 165lbs. 1.0oz. [id number]; 25.09 BMI Method:Stated General Appearance: WD/WN, no apparent distress Cardiovascular: regular rate, rhythm, no edema, no murmur Respiratory: chest non-tender, lungs clear, normal breath sounds, no respiratory distress Gastrointestinal: normal bowel sounds, non tender, soft, no organomegaly, other (General speculum exam reveals no retained foreign body.) Progress/Results/Core Measures Suspected Sepsis SIRS Temperature: Pulse: Respiratory Rate: Blood Pressure / Mean: Results/Orders Vital Signs/I&O Capillary Refill : Departure Communication (Admissions) Patient is hemodynamically stable. Her speculum exam reveals no retained foreig n body. Advised to follow-up as needed. Impression Primary Impression: Encounter for medical screening examination Disposition: HOME, SELF-CARE Condition: Stable Departure-Patient Inst. Referrals: RUCHI OWENS MD (PCP/Family) Primary Care Physician Add. Discharge Instructions: No foreign bodies identified today. Follow-up as needed. YASMIN LILLY DO Mar 09, 2022 16:11
== END 2022-03-09 16:28 | disposition home or self-care (01) ==
LOC: EDUNIT# 15:48 → ER 15:50
DX: Z00.00 Encounter for general adult medical examination without abnormal findings (principal); Z28.311 Partially vaccinated for COVID-19
CPT/HCPCS: 99284